=== PATIENT | female | born 1945 | race Caucasian/White ===

== ENCOUNTER 2018-06-15 15:42 | Emergency (ER) | payer MEDICARE, MEDICAID ==
--- NOTE | 2018-06-15 16:17 | ED Physician Chart ---
ED Chief Complaint/HPI - Patient Information Date Seen:: 06/15/18 Time Seen:: 16:05 Chief Complaint:: uterine and rectal prolapse History of Present Illness:: Patient has had uterine and rectal prolapse for an unspecified length of time. Allergies:: Allergies Allergy/AdvReac Type Severity Reaction Status Date / Time benztropine Allergy Verified 06/15/18 16:09 Sulfa (Sulfonamide Allergy Verified 06/15/18 16:08 Antibiotics) trihexyphenidyl [From Artane] Allergy Verified 06/15/18 16:07 Historian:: Patient, EMS Review:: Transfer documents Reviewed ED Past Medical History - Past Medical History Past Medical History: Thyroid disorder, Other (bronchitis; rectal prolapse; schizophrenia; hypothyroidism; rectocele; major depression) Family History: Other (unavailable) Social History: Smoker, Care Facility Surgical History: other (unavailable) Psychiatricy History: Depression, Schizophrenia Medication: Reviewed Family Medical History - Family Member Mother History Unknown: Yes ED Physical Exam - Physical Examination General/Constitutional: Awake Other Gen/Cons comments:: Patient is chronically ill-appearing; patient is mildly confused. She does not know if the year is 2018 or 2018 Head: Atraumatic Eyes: Lids, conjuctiva normal, PERRL Skin: Nl inspection, No rash ENMT: External ears, nose nl, Oropharynx nl Other ENMT comments:: Edentulous Neck: No nuchal rigidity Respiratory: Nl effort/Exclusion Other Respiratory comments:: Prolonged harsh expiratory sounds; slight expiratory wheezing Cardio Vascular: RRR, No murmur, gallop, rubs, NL S1 S2 GI: No tenderness/rebounding/guarding, No organomegaly, No hernia Extremities: Normal digits & nails Neuro/Psych: No focal deficits Misc: No paraspinal tenderness ED Labs/Radiology/EKG Results - Lab Results Results: Laboratory Results WBC 7.5 Th/cmm (4.8-10.8) 06/15/18 16:20 RBC 4.97 Mil/cmm (3.80-5.20) 06/15/18 16:20 Hgb 14.1 gm/dL (12-16) 06/15/18 16:20 Hct 43.9 % (41.0-60) 06/15/18 16:20 MCV 88.4 fl (81-100) 06/15/18 16:20 MCH 28.5 pg (27.0-31.0) 06/15/18 16:20 MCHC Differential 32.2 pg (28.0-36.0) 06/15/18 16:20 RDW 12.7 % (11.5-20.0) 06/15/18 16:20 Plt Count 444 Th/cmm (150-400) H 06/15/18 16:20 MPV 7.1 fl 06/15/18 16:20 Neutrophils % 75.7 % (40.0-80.0) 06/15/18 16:20 Lymphocytes % 13.3 % (20.0-50.0) L 06/15/18 16:20 Monocytes % 9.4 % (2.0-10.0) 06/15/18 16:20 Eosinophils % 1.0 % (0.0-5.0) 06/15/18 16:20 Basophils % 0.6 % (0.0-2.0) 06/15/18 16:20 PT 9.3 SECONDS (9.5-11.5) L 06/15/18 16:20 INR 0.88 (0.5-1.4) 06/15/18 16:20 PTT (Actin FS) 30.5 SECONDS (26.0-38.0) 06/15/18 16:20 Sodium 126 mEq/L (136-145) L 06/15/18 16:20 Potassium 3.7 mEq/L (3.5-5.1) 06/15/18 16:20 Chloride 91 mEq/L (98-107) L 06/15/18 16:20 Carbon Dioxide 29.0 mEq/L (21.0-31.0) 06/15/18 16:20 Anion Gap 9.7 (7.0-16.0) 06/15/18 16:20 BUN 14 mg/dL (7-25) 06/15/18 16:20 Creatinine 0.9 mg/dL (0.6-1.2) 06/15/18 16:20 Est GFR ( Amer) TNP 06/15/18 16:20 Est GFR (Non-Af Amer) TNP 06/15/18 16:20 BUN/Creatinine Ratio 15.6 06/15/18 16:20 Glucose 100 mg/dL (70-105) 06/15/18 16:20 Calcium 8.3 mg/dL (8.6-10.3) L 06/15/18 16:20 - Radiology Results Results: Chest x-ray showed increased interstitial markings but was otherwise negative ED Assessment - Assessment General Assessment: I spoke to Dr. Álvarez and patient be transferred to [facility] ED Septic Shock - . Is Septic Shock (SBP<90, OR Lactate>4 mmol\L) present?: No ED Reassessment (Disposition) - Reassessment Reassessment Condition:: Unchanged - Diagnosis Diagnosis:: Prolapsed rectum; prolapsed uterus; COPD; hypnatremia - Patient Disposition Discharge/Transfer:: Acute Care (other hosp) Spoke to:: Dr. Álvarez Condition at Disposition:: Stable, Unchanged
[2018-06-15 16:27] LABS: % BASOPHILS 0.6 % (0.0-2.0); % LYMPHOCYTES 13.3 % (20.0-50.0); % MONOCYTES 9.4 % (2.0-10.0); % NEUTROPHILS 75.7 % (40.0-80.0); EOSINOPHILE ABSOLUTE 0.1 Th/cmm (0.1-0.4); HEMATOCRIT 43.9 % (41.0-60); HEMOGLOBIN 14.1 gm/dL (12-16); MEAN CELL VOLUME 88.4 fl (81-100); MEAN CORPUSCULAR HEMOGLOBIN 28.5 pg (27.0-31.0); MEAN CORPUSCULAR HGB CONC 32.2 pg (28.0-36.0); MEAN PLATELET VOLUME 7.1 fl; MONOCYTE ABSOLUTE 0.7 Th/cmm (0.3-1.0); NEUTROPHILE ABSOLUTE 5.7 Th/cmm (1.8-8.0); PLATELET COUNT 444 Th/cmm (150-400); RED BLOOD COUNT 4.97 Mil/cmm (3.80-5.20); RED CELL DISTRIBUTION WIDTH 12.7 % (11.5-20.0); WHITE BLOOD COUNT 7.5 Th/cmm (4.8-10.8)
[2018-06-15 16:39] LABS: ANION GAP 9.7 (7.0-16.0); BUN - UREA NITROGEN 14 mg/dL (7-25); CALCIUM SERUM 8.3 mg/dL (8.6-10.3); CHLORIDE 91 mEq/L (98-107); CREATININE - SERUM 0.9 mg/dL (0.6-1.2); GLUCOSE 100 mg/dL (70-105); POTASSIUM SERUM 3.7 mEq/L (3.5-5.1); SODIUM SERUM 126 mEq/L (136-145)
[2018-06-15 16:42] LABS: INR 0.88 (0.5-1.4); PROTHROMBIN TIME (TEST) 9.3 SECONDS (9.5-11.5)
[2018-06-16] MEDS ORDERED: Lactated Ringer 1,000 ML IV ONE (07:15)
[2018-06-16 07:38] LABS: ALB/GLOB RATIO 1.6 (1.0-1.8); ALBUMIN 3.4 gm/dL (3.7-5.3); BILIRUBIN,TOTAL 0.3 mg/dL (0.3-1.0); TOTAL PROTEIN,SERUM 5.6 gm/dL (6.0-8.3)
[2018-06-16 07:43] LABS: BILIRUBIN,DIRECT 0.09 mg/dL (0.0-0.2)
[2018-06-16] MEDS ORDERED: D5LR 1,000 ML IV ONE (08:12)
--- NOTE | 2018-06-16 09:44 | Diagnostic Imaging Report ---
Portable chest x-ray History: Shortness of breath Allowing for portable technique the heart size is normal. Atherosclerotic calcification seen within the aortic arch. Accentuation of the lower interstitial lung markings. No focal pulmonary parenchymal processes. No hilar or mediastinal abnormalities. Impression: No acute abnormalities.
== END 2018-06-16 11:10 | disposition short-term general hospital (02) ==
LOC: ER 15:42
DX: K62.2 Anal prolapse (principal); N81.4 Uterovaginal prolapse, unspecified; J44.9 Chronic obstructive pulmonary disease, unspecified; E87.1 Hypo-osmolality and hyponatremia; E07.9 Disorder of thyroid, unspecified; F32.9 Major depressive disorder, single episode, unspecified; F20.9 Schizophrenia, unspecified; F17.200 Nicotine dependence, unspecified, uncomplicated; Z88.2 Allergy status to sulfonamides; Z88.8 Allergy status to other drugs, medicaments and biological substances
CPT/HCPCS: 36415-UA; 71045-TC; 80048-TC; 80076-TC; 82948-90; 85025-TC; 85610-TC; 85730-TC; 93005; Z7502

== ENCOUNTER 2018-09-20 21:35 | Emergency (ER) | payer MEDICARE, MEDICAID ==
--- NOTE | 2018-09-20 21:51 | ED Physician Chart ---
ED Chief Complaint/HPI - Patient Information Date Seen:: 09/20/18 Time Seen:: 21:49 Chief Complaint:: rectal prolapse History of Present Illness:: 72 yr old female with rectal prolapse chrnic with pain and some bleeding Allergies:: Allergies Allergy/AdvReac Type Severity Reaction Status Date / Time benztropine Allergy Verified 06/15/18 16:09 Sulfa (Sulfonamide Allergy Verified 06/15/18 16:08 Antibiotics) trihexyphenidyl [From Artane] Allergy Verified 06/15/18 16:07 ED Review of Systems - Review of Systems General/Constitutional: No fever, No chills, No weight loss, No weakness, No diaphoresis, No edema, No loss of appetite Skin: No skin lesions, No rash, No bruising Head: No headache, No light-headedness Eyes: No loss of vision, No pain, No diplopia ENT: No earache, No nasal drainage, No sore throat, No tinnitus Neck: No neck pain, No swelling, No thyromegaly, No stiffness, No mass noted Cardio Vascular: No chest pain, No palpitations, No PND, No orthopnea, No edema Pulmonary: No SOB, No cough, No sputum, No wheezing GI: No nausea, No vomiting, No diarrhea, No pain, No melena, No hematochezia, No constipation, No hematemesis G/U: No dysuria, No frequency, No hematuria Musculoskeletal: No bone or joint pain, No back pain, No muscle pain Endocrine: No polyuria, No polydipsia Psychiatric: No prior psych history, No depression, No anxiety, No suicidal ideation Hematopoietic: No bruising, No lymphadenopathy Allergic/Immuno: No urticaria, No angioedema Neurological: No syncope, No focal symptoms, No weakness, No paresthesia, No headache, No seizure, No dizziness, No confusion, No vertigo ED Past Medical History - Past Medical History Past Medical History: Other (rectal prolapse) Family Medical History - Family Member Mother History Unknown: Yes ED Physical Exam - Physical Examination General/Constitutional: Awake, Well-developed, well-nourished, Alert, No distress, GCS 15, Non-toxic appearing, Ambulatory Head: Atraumatic Eyes: Lids, conjuctiva normal, PERRL, EOMI Skin: Nl inspection, No rash, No skin lesions, No ecchymosis, Well hydrated, No lymphadenopathy ENMT: External ears, nose nl, Nasal exam nl, Lips, teeth, gums nl Neck: Nontender, Full ROM w/o pain, No JVD, No nuchal rigidity, No bruit, No mass, No stridor Respiratory: Nl effort/Exclusion, Clear to Auscultation, No Wheeze/Rhonchi/Rales Cardio Vascular: RRR, No murmur, gallop, rubs, NL S1 S2 GI: No tenderness/rebounding/guarding, No organomegaly, No hernia, Normal BS's, Nondistended, No mass/bruits, No McBurney tenderness : No CVA tenderness Extremities: No tenderness or effusion, Full ROM, normal strength in all extremities, No edema, Normal digits & nails Neuro/Psych: Alert/oriented, DTR's symmetric, Normal sensory exam, Normal motor strength, Judgement/insight normal, Mood normal, Normal gait, No focal deficits Misc: Normal back, No paraspinal tenderness ED Assessment - Assessment General Assessment: rectal prolapse ED Septic Shock - . Is Septic Shock (SBP<90, OR Lactate>4 mmol\L) present?: No ED Reassessment (Disposition) - Reassessment Reassessment:: rectal prolapse - Diagnosis Diagnosis:: rectal prolapse - Patient Disposition Discharge/Transfer:: Acute Care w/in this hosp Condition at Disposition:: Stable
[2018-09-20 22:11] LABS: % EOSINOPHILS 1.3 % (0.0-5.0); EOSINOPHILE ABSOLUTE 0.1 Th/cmm (0.1-0.4)
[2018-09-20 22:14] LABS: % BASOPHILS 0.5 % (0.0-2.0); % LYMPHOCYTES 9.3 % (20.0-50.0); % MONOCYTES 9.2 % (2.0-10.0); % NEUTROPHILS 79.7 % (40.0-80.0); BASOPHILE ABSOLUTE 0.1 Th/cumm (0-0.2); HEMATOCRIT 38.5 % (41.0-60); HEMOGLOBIN 12.8 gm/dL (12-16); MEAN CELL VOLUME 82.7 fl (81-100); MEAN CORPUSCULAR HEMOGLOBIN 27.4 pg (27.0-31.0); MEAN CORPUSCULAR HGB CONC 33.1 pg (28.0-36.0); MEAN PLATELET VOLUME 7.2 fl; NEUTROPHILE ABSOLUTE 8.6 Th/cmm (1.8-8.0); PLATELET COUNT 464 Th/cmm (150-400); RED BLOOD COUNT 4.66 Mil/cmm (3.80-5.20); RED CELL DISTRIBUTION WIDTH 14.6 % (11.5-20.0); WHITE BLOOD COUNT 10.8 Th/cmm (4.8-10.8)
[2018-09-20 22:22] LABS: INR 0.92 (0.5-1.4); PROTHROMBIN TIME (TEST) 9.6 SECONDS (9.5-11.5)
[2018-09-20 22:25] LABS: ALB/GLOB RATIO 1.3 (1.0-1.8); ALBUMIN 3.2 gm/dL (3.7-5.3); ALKALINE PHOSPHATASE 67 U/L (34-104); ANION GAP 10.6 (7.0-16.0); BILIRUBIN,TOTAL 0.3 mg/dL (0.3-1.0); BUN - UREA NITROGEN 16 mg/dL (7-25); CALCIUM SERUM 8.6 mg/dL (8.6-10.3); CARBON DIOXIDE 25.4 mEq/L (21.0-31.0); CHLORIDE 91 mEq/L (98-107); CREATININE - SERUM 0.7 mg/dL (0.6-1.2); GLUCOSE 124 mg/dL (70-105); SGOT 11 U/L (13-39); SGPT/ALT 7 U/L (7-52); SODIUM SERUM 123 mEq/L (136-145); TOTAL PROTEIN,SERUM 5.7 gm/dL (6.0-8.3)
== END 2018-09-20 23:35 ==
LOC: ER 21:35
DX: K62.2 Anal prolapse (principal); Z88.2 Allergy status to sulfonamides; Z88.8 Allergy status to other drugs, medicaments and biological substances
CPT/HCPCS: 36415-UA; 80053-TC; 85025-TC; 85610-TC; Z7502